=== PATIENT | female | born 1990 | race Caucasian/White ===

== ENCOUNTER 2018-04-18 04:58 | Observation (INO) | payer MEDICAID, OTHER ==
[~2018-04-18] VITALS: Ht 162.6 cm; Wt 71.6 kg
[~2018-04-18 04:58] MED LIST: HYDR10TA4 PO; LAMO100T PO; LITH300T3 PO; ZIPR60CA3 PO
[2018-04-18] MEDS ORDERED: ZIPRASIDONE 20MG CAPSULE ONE (05:54)
[2018-04-18] MEDS ORDERED: ZIPRASIDONE 20MG CAPSULE PO ONE (06:00)
[2018-04-18 06:18] LABS: BASOPHILS # (AUTO) 0.04 x10^3/uL (0-0.1); BASOPHILS % (AUTO) 0 % (0-1); EOSINOPHILS # (AUTO) 0.02 x10^3/uL (0-0.4); EOSINOPHILS % (AUTO) 0 % (1-7); LYMPHOCYTES # (AUTO) 1.96 x10^3/uL (1-3.4); LYMPHOCYTES % (AUTO) 19 % (22-44); MD NO; MEAN CORPUSCULAR HGB CONC 34.2 g/dL (32.4-35.8); MEAN CORPUSCULAR VOLUME 93.4 fL (80-100); MEAN PLATELET VOLUME 8.5 fL (7.4-10.4); MONOCYTES # (AUTO) 0.31 x10^3/uL (0.2-0.8); MONOCYTES % (AUTO) 3 % (2-9); NEUTROPHILS # (AUTO) 8.25 x10^3/uL (1.8-6.8); NEUTROPHILS % (AUTO) 78 % (42-75); PLATELET COUNT 284 x10^3/uL (130-400); RED BLOOD COUNT 4.61 x10^6/uL (3.82-5.3); RED CELL DISTRIBUTION WIDTH 12.6 % (9.6-15.2)
[2018-04-18 06:31] LABS: ALANINE AMINOTRANSFERASE 22 U/L (12-78); ALBUMIN 4.7 g/dL (3.4-5.0); ANION GAP 9 mmol/L (5-15); CALCIUM 9.3 mg/dL (8.5-10.1); CHLORIDE 106 mmol/L (98-107); CREATININE 0.74 mg/dL (0.55-1.02); SALICYLATE LEVEL < 1.7 mg/dL (2.8-20.0)
[2018-04-18 06:32] LABS: ACETAMINOPHEN < 2 mcg/mL (10-30)
[2018-04-18 06:36] LABS: ALKALINE PHOSPHATASE 69 U/L (45-117); TOTAL PROTEIN 8.4 g/dL (6.4-8.2)
[2018-04-18 07:11] LABS: AMPHETAMINE SCREEN, URINE Negative (Negative); BARBITURATE SCREEN, URINE Negative (Negative); BENZODIAZEPINE SCREEN, URINE Negative (Negative); CANNABINOID SCREEN, URINE Negative (Negative); COCAINE SCREEN, URINE Negative (Negative); METHADONE SCREEN, URINE Negative (Negative); OPIATE SCREEN, URINE Negative (Negative)
[2018-04-18] MEDS ORDERED: ONDANSETRON ODT 4 MG PO PRN (15:00)
[2018-04-18] MEDS ORDERED: POTASSIUM CHLORIDE 20 MEQ TAB.ER.PRT PO ONE (15:00)
[2018-04-18] MEDS ORDERED: ACETAMINOPHEN 325 MG TABLET PO PRN (15:00)
[2018-04-18] MEDS ORDERED: DOCUSATE 100 MG CAPSULE PO PRN (15:00)
[2018-04-18 15:09] VITALS: BP 138/75
[2018-04-18] MEDS: hydrOXyzine 10MG TABLET PO PRN (16:27)
[2018-04-18] MEDS ORDERED: ZIPRASIDONE 20 MG INJ IM ONE (19:30)
[2018-04-18] MEDS: LORazepam 1MG TABLET PO PRN (19:37)
[2018-04-18 19:38] VITALS: BP 125/85
[2018-04-19] MEDS: LORazepam 1MG TABLET PO PRN ×3 (00:36→19:37)
[2018-04-19 07:35] VITALS: BP 122/80
[2018-04-19] MEDS ORDERED: ARIPIPRAZOLE 10 MG TABLET PO SCH (17:00)
[2018-04-19 19:39] VITALS: BP 133/80
[2018-04-20] MEDS: hydrOXyzine 10MG TABLET PO PRN (05:38)
== END 2018-04-20 07:30 ==
LOC: ED 09:04 → EDIP 10:22 → INTOOBSV 10:22 → 3E 15:01
PROVIDERS: ADMIT Internal Medicine; ATTEND Internal Medicine
DX: F30.9 Manic episode, unspecified (principal); D72.829 Elevated white blood cell count, unspecified; E86.0 Dehydration; E87.6 Hypokalemia; F31.2 Bipolar disorder, current episode manic severe with psychotic features; K21.9 Gastro-esophageal reflux disease without esophagitis; Z87.891 Personal history of nicotine dependence; Z91.14 Patient's other noncompliance with medication regimen
CPT/HCPCS: 36415; 80053; 80307; 80329; 84703; 85025; 96372; 99285; G0378; J3486; G0480

== ENCOUNTER 2018-05-04 16:58 | Emergency (ER) | payer MEDICAID ==
[~2018-05-04] VITALS: Ht 162.6 cm; Wt 71.0 kg
[2018-05-04 17:15] VITALS: BP 113/70
[2018-05-04] MEDS ORDERED: DEXAMETHASONE 4 MG TABLET PO ONE (18:00)
[2018-05-04] MEDS ORDERED: DEXAMETHASONE 4 MG TABLET ONE (18:34)
== END 2018-05-04 18:59 | disposition home or self-care (01) ==
LOC: ED 18:53
DX: J02.9 Acute pharyngitis, unspecified (principal)
CPT/HCPCS: 87081; 87880; 99284